=== PATIENT | male | born 1970 | race Hispanic/Latino ===

== ENCOUNTER → 2019-01-10 | Outpatient (CLI) | payer OTHER ==
--- NOTE | 2019-01-10 13:36 | Diagnostic Imaging Report ---
EXAM: Scrotal Ultrasound INDICATION: ^[id number] ^[id number] ^TESTICULAR NODULE COMPARISON: None TECHNIQUE: Transverse and longitudinal images were obtained of the scrotum with grayscale imaging, color Doppler and spectral waveform analysis. FINDINGS: Right testis: Size: 5.4 x 2.1 x 3.2 cm, normal in size. Echogenicity: Normal Mass/Cysts: None Left testis: Size: 3.9 x 2.4 x 3.3 cm, normal in size. Echogenicity: Normal Mass/Cysts: None Epididymis: Appearance: Normal in size without increased vascularity. Cysts somewhat obscure the epididymal parenchyma. Mass/Cysts: Bilateral epididymal cysts are present. On the right these measure 2.9 x 2.4 x 2.5 cm and 6.8 x 2.6 x 3.2 cm. Left epididymal cyst measures 6.6 x 3.8 x 5.2 cm. Extratesticular: Masses: None Fluid collections: None Doppler: Normal arterial flow to both testes and symmetrical flow on color Doppler evaluation is seen. No evidence of testicular torsion. IMPRESSION: 1. No evidence of testicular torsion. 2. No testicular masses. 3. Large bilateral epididymal cysts, largest measuring up to 6.8 cm on the right and 6.6 cm on the left. Signed by: Dr. Gerhard Mondragon M.D. on 01/10/2019 1:33 PM
== END ==
LOC: US 09:06
PROVIDERS: ATTEND Family Medicine
DX: N50.3 Cyst of epididymis (principal)
CPT/HCPCS: 76870; 93976